=== PATIENT | female | born 1995 | race Caucasian/White ===

== ENCOUNTER 2024-03-06 21:29 | Emergency (ER) | payer OTHER | END 2024-03-06 23:08 | disposition home or self-care (01) | LOC: JP.ED 21:29 | DX: F12.980 Cannabis use, unspecified with anxiety disorder (principal); E05.90 Thyrotoxicosis, unspecified without thyrotoxic crisis or storm; F17.210 Nicotine dependence, cigarettes, uncomplicated; Z88.0 Allergy status to penicillin; Z79.899 Other long term (current) drug therapy | CPT/HCPCS: 99283 ==